=== PATIENT | female | born 1985 | race Two or more races ===

== ENCOUNTER 2024-09-14 15:29 | Emergency (ER) | payer SELFPAY ==
[2024-09-14 15:30] VITALS: BMI 27.4
[2024-09-14 15:56] VITALS: BP 134/85; PULSE 100; RESP 18; TEMP 37.4; O2SAT 100
--- NOTE | 2024-09-14 16:19 | EDRME_ITS ---
Rapid Medical Screening Exam E Arrival date/time: 09/14/24 15:29 This is a 39-year-old female presents to the emergency department with complaints of generalized fatigue and dizziness, reports her hemoglobin was 6.8 last week. She is taking ferrous sulfate however is unknown if her hemoglobin has dropped has been on her menses for the last 3 months. I have greeted and performed a focused initial assessment of this patient. Initial appropriate labs ordered at this time. A comprehensive ED assessment an d evaluation of the patient and analysis of all test and completion of medical decision making process will be conducted by additional ED provider. Chief Complaint: Flu Like Symptoms Time Seen by Provider: 09/14/24 15:59 Vital signs: Vital Signs Temperature 99.3 F 09/14/24 15:56 Pulse Rate 100 09/14/24 15:56 Respiratory Rate 18 09/14/24 15:56 Blood Pressure 134/85 H 09/14/24 15:56 Pulse Oximetry (%) 100 09/14/24 15:56 Oxygen Delivery Method Room Air 09/14/24 15:56
[2024-09-14 16:43] LABS: Basophils # (Auto) 0.2 Thou/mm3 (0.0-0.2); Basophils % (Auto) 1 % (0-2.5); Eosinophils # (Auto) 0.9 Thou/mm3 (0.0-0.5); Eosinophils % (Auto) 8 % (0-10); Immature Granulocytes % (Auto) 0 % (0-0); Immature Granulocytes Auto 0.04 Thou/mm3 (0.00-0.00); Lymphocytes # (Auto) 3.9 Thou/mm3 (1.0-4.8); Lymphocytes % (Auto) 33 % (10-50); Mean Corpuscular Hemoglobin 19.3 pg (25.0-35.0); Mean Corpuscular Volume 64 fL (80-100); Monocytes # (Auto) 0.7 Thou/mm3 (0.0-0.8); Monocytes % (Auto) 6 % (0-12); Neutrophils # (Auto) 5.9 Thou/mm3 (1.8-7.7); Neutrophils % (Auto) 51 % (37-80); Nucleated Red Blood Cell % 0 /100 WBC (0); Platelet Count 625 Thou/mm3 (140-440); RDW Standard Deviation 43.9 fL (36.4-46.3); Red Blood Count 3.42 Miln/mm3 (4.00-5.20); White Blood Count 11.7 Thou/mm3 (3.6-11.0)
[2024-09-14 16:49] LABS: Bilirubin,Urine Negative (Negative); Blood,Urine 1+ (Negative); Clarity,Urine Clear (Clear/Hazy); Color,Urine Yellow (Lt Yel-Yel); Glucose, Urine Negative (Negative); Ketones,Urine Negative (Negative); Leukocyte Esterase,Urine Positive (Negative); Nitrite,Urine Negative (Negative); Protein,Urine Trace (Neg - Trace); RBC,Urine 2 /hpf (0-3); Specific Gravity,Urine 1.028 (1.001-1.035); Squamous Epithelial Cell,Urine 5 /hpf (0-5); Urobilinogen,Urine Negative mg/dL (0.0-1.0); WBC,Urine 11 /hpf (0-5)
[2024-09-14 16:51] LABS: HCG Qualitative,Urine Negative
[2024-09-14 17:01] LABS: Alanine Aminotransferase 12 U/L (10-49); Albumin, Serum 4.5 gm/dL (3.5-5.0); Albumin/Globulin Ratio 1.5 (1.2-2.2); Alkaline Phosphatase 68 U/L (46-116); Anion Gap 10 (7-16); Aspartate Amino Transferase 13 U/L (0-34); BUN/Creatinine Ratio 23 Ratio (12-20); Bilirubin,Total 0.2 mg/dL (0.3-1.2); Blood Urea Nitrogen 16 mg/dL (9-23); Carbon Dioxide 22.5 mMol/L (20.0-31.0); Chloride 105 mMol/L (98-107); Creatinine (Component) 0.7 mg/dL (0.6-1.3); Estimated Creatinine Clearance 109.2 mL/min (>60); Globulin 3.1 gm/dL (2.3-3.5); Glucose 106 mg/dL (74-106); Lipase 48 U/L (12-53); Osmolality,Calculated 275 (275-295); Potassium 3.5 mMol/L (3.4-5.1); Sodium 137 mMol/L (136-145); Total Protein 7.6 gm/dL (5.7-8.2); eGFR > 60 See Note
[2024-09-14 17:03] LABS: Hemoglobin 6.6 g/dL (12.0-16.0)
[2024-09-14 17:08] LABS: Collection Type, Urine Clean Catch
[2024-09-14 17:15] LABS: Path Review Blood Smear Sent to Pathologist
--- NOTE | 2024-09-14 17:55 | EDNOTE_ITS ---
ED Dizzyness RME/HPI General Chief Complaint: Flu Like Symptoms Stated Complaint: Dizziness, near syncopal episode x 1 week, flu lik Time Seen by Provider: 09/14/24 15:59 Arrival date/time: 09/14/24 15:29 RME / HPI RME / HPI Narrative: 39-year-old female presents to the emergency department with complaints of generalized fatigue and dizziness, reports her hemoglobin was 6.8 last week. She is taking ferrous sulfate however is unknown if her hemoglobin has dropped has been on her menses for the last 3 months. Patient denies any black-colored stool. Denies any vomiting blood denies any blood in the stool. Related Data Previous Rx's ?Medication ?Instructions ?Recorded oseltamivir 75 mg capsule (Tamiflu) 75 mg PO BID 5 day s #10 caps 09/14/24 Allergies Allergy/AdvReac Type Severity Reaction Status Date / Time NKA Allergy Unknown Uncoded 04/06/21 12:44 No Known Allergies Allergy Unknown Uncoded 04/06/21 12:44 Review of Systems Review of Systems Narrative Review of Systems: Review of system reviewed and within normal limits except mentioned in HPI ED Exam Narrative Physical exam: VITAL SIGNS: Reviewed. GENERAL APPEARANCE: Alert and interactive, follows commands, no acute distress, HEAD AND FACE: Non-traumatic. ENT: PERRL, pale conjunctiva, eyelid no trauma, Mucous membrane moist. NECK: Supple, nontender, no nuchal rigidity. CHEST: No tenderness, no crepitus, no paradoxical movement, no retractions. LUNGS: Clear, well ventilated, symmetric, no rales, no wheezing, no ronchi, no stridor, good breath sounds bilaterally. HEART: Regular rate, regular rhythm, no murmur, no gallops. ABDOMEN: Soft, positive bowel sounds, nondistended, no guarding, nontender, no rebound, no masses, RECTAL: Deferred. GENITAL: Deferred. NEUROLOGICAL: Gross motor function intact sensory function intact, Appropriate for age. MUSCULOSKELETAL: low back nontender, full range of motion. EXTREMITIES: Nontender, full range of motion. SKIN: Color pale, dry, no rash, no lacerations, no abrasions, no contusions. LYMPHATICS: Deferred. Course Quality Measures none Orders Category Date Time Status Bedside Influenza A&B Antigen Test NOW Care 09/14/24 16:19 Completed Insert IV NOW Care 09/14/24 18:18 Active Occult Blood,Stool (Nursing) ONCE Care 09/14/24 17:54 Active Transfuse,blood/blood products ONCE Care 09/14/24 17:54 Active Antibody Identification Stat Lab 09/14/24 18:07 Results CBC Stat Lab 09/14/24 14:31 Completed Comprehensive Metabolic Panel Stat Lab 09/14/24 14:31 Completed HCG Qualitative,Urine Stat Lab 09/14/24 16:33 Completed Lipase Stat Lab 09/14/24 14:31 Completed Path Review Blood Smear Stat Lab 09/14/24 14:31 Completed Type and Screen Stat Lab 09/14/24 18:07 Results Urinalysis Stat Lab 09/14/24 16:33 Completed prbc [Red Blood Cells] Stat Lab 09/14/24 18:07 Results Oseltamivir [Tamiflu] Med 09/14/24 17:54 Discontinued 75 mg PO X1 ONE Vital Signs Vital signs: Vital Signs Temperature 99.3 F 09/14/24 15:56 Pulse Rate 100 09/14/24 15:56 Respiratory Rate 18 09/14/24 15:56 Blood Pressure 134/85 H 09/14/24 15:56 Pulse Oximetry (%) 100 09/14/24 15:56 Oxygen Delivery Method Room Air 09/14/24 15:56 Dizziness MDM Narrative MDM Narrative:: 39-year-old female presents to the emergency department with complaints of generalized fatigue and dizziness, reports her hemoglobin was 6.8 last week. She is taking ferrous sulfate however is unknown if her hemoglobin has dropped has been on her menses for the last 3 months. Patient denies any black-colored stool. Denies any vomiting blood denies any blood in the stool. Patient was tested positive for influenza AMB. Patient's hemoglobin was noted to be 6.6 today hematocrit of 22. Patient received 2 units of packed RBC. Was also given Tamiflu. Patient appears nontoxic and hemodynamically stable. Patient discharged home and instructed to follow-up with primary care provider in 24 to 48 hours. Instructed to return to the emergency department immediately if worsening of symptoms Patient data External records reviewed:: None Clinical information provided by:: patient Social determinants that could affect healthcare access:: none Patient has the following chronic illnesses:: None How is presenting disease/condition affected by chronic disease/condition?: no chronic disease Evaluation data The following diagnostics were reviewed and interpreted by me:: lab results Lab and/or radiology exams considered but not ordered:: None Interpretation Summary: See results in MDM Medications / Prescriptions Medications or Prescriptions considered but not ordered:: None Medication administrations:: Medication Administration History Discontinued Medications Oseltamivir Phosphate (Oseltamivir 75 Mg Capsule) 75 mg PO X1 ONE Stop: 09/14/24 17:55 Last Admin: 09/14/24 19:15 Dose: 75 mg Documented By: EE Tamiflu and 2 units packed RBC Consultations Consultation(s) initiated? (list below): No Diagnosis Dizziness Differential Diagnosis: other (Anemia, influenza, iron deficiency anemia) Most likely diagnosis given after review of the tests above:: Anemia, influenza Admission Indicated Admission indicated?: not indicated Admission Request Was there a request for admission?: No Disposition Plan Disposition Plan: Discharge Discharge Attestation Discharge Attestation: The patient was given an opportunity to ask questions and understood the discharge instructions. Discharge instructions specifically effects, indications for sooner follow up or return to the emergency department, and the expected course of current diagnosis. Patient condition: Stable Discharge Plan Plan Patient Disposition: HOME (Self Care) Disposition Comment: Stable Prescriptions/Referrals Prescriptions/Med Rec: New oseltamivir [Tamiflu] 75 mg capsule 75 mg PO BID 5 Days Qty: 10 0RF Referrals: No Primary/Family,Physician [Primary Care Provider] - In 1 week Problem List Clinical Impression: Anemia, Influenza Patient/Caregiver Discharge Instructions Discharge Activity: activity as tolerated Education Materials: Anemia Additional Instructions: Thank you for the opportunity for serving you today. You are stable for discharged . You are advised to: Follow-up with your PCP in 1 to 2 days Return to ED for worsening of symptoms Increase oral fluids Take medication as prescribed Print Language: Peruvian Stand Alone Forms: Sabrina Award Info., Patient Portal Info Letter PA/HIDE COOKING OPERATOR Supervising Physician PA/HIDE COOKING OPERATOR Supervising Physician: MD Noah
[2024-09-14 19:03] VITALS: BP 90/65; PULSE 89; RESP 18; TEMP 37.2; O2SAT 99
[2024-09-14] MEDS: OSELTAMIVIR 75 MG CAPSULE PO (19:15)
[2024-09-14 21:17] VITALS: BP 100/59; PULSE 75; RESP 17; TEMP 36.9; O2SAT 100
[2024-09-15] VITALS (10 sets, daily range): BP systolic 99–112; BP diastolic 60–70; PULSE 68–89; RESP 16–19; TEMP 36.7–37.1; O2SAT 97–100
== END 2024-09-15 04:47 | disposition home or self-care (01) ==
PROVIDERS: Nurse Practitioner Primary Care; Emergency Provider Emergency Medicine
DX: J11.1 Influenza due to unidentified influenza virus with other respiratory manifestations (principal); D64.9 Anemia, unspecified
CPT/HCPCS: 36415; 36430; 80053; 81001; 81025; 83690; 85025; 86850; 86870; 86900; 86901; 86921; 86922; 87400; 99285; P9016; A9270

== ENCOUNTER → 2025-06-11 | Outpatient (CLI) | payer OTHER, SELFPAY ==
--- NOTE | 2025-06-09 10:41 | ESHP_ITS ---
RE: KAVON SWIFT : 1985 DATE OF ADMISSION: 06/12/2025 DATE OF SURGERY: 06/12/2025 HISTORY OF PRESENT ILLNESS: This is a 40-year-old 5, para 5, with abnormal uterine bleeding, secondary dysmenorrhea, symptomatic uterine fibroids, deep dyspareunia, iron deficiency anemia with a history of blood transfusion due to heavy vaginal bleeding and endometrial ablation in 2023, who presents for hysterectomy due to failure of conservative measures to control her abnormal bleeding. ALLERGIES: NO KNOWN DRUG ALLERGIES. MEDICATIONS: Ferrous sulfate 325 mg 1 p.o. b.i.d. SOCIAL HISTORY: She denies any alcohol, drug use, or smoking. She is . OBSTETRICAL HISTORY: Five previous full-term normal vaginal deliveries. PAST SURGICAL HISTORY: Endometrial ablation in 2023, laparoscopic bilateral salpingectomy. PAST MEDICAL HISTORY: Blood transfusion. Iron deficiency anemia. PHYSICAL EXAMINATION: VITAL SIGNS: Blood pressure 128/74, heart rate 88, respirations 16, temperature is 98.2, weight 172 pounds. HEENT: Oropharynx and sclerae are clear. LUNGS: Clear to auscultation bilaterally. HEART: Regular rate and rhythm. ABDOMEN: Nontender. EXTREMITIES: Nontender. SKIN: No gross rashes or lesions. NEUROLOGIC: No focal deficit. ASSESSMENT: Abnormal uterine bleeding, secondary dysmenorrhea, deep dyspareunia, symptomatic leiomyomatous uterus, severe anemia, blood transfusion history. PLAN: Abdominal hysterectomy, bilateral salpingectomy. Informed consent was obtained. The patient made aware of the risks, complications, alternatives, and benefits of the proposed procedure and she agrees. She is aware of the risk of injury to bowel, bladder, ureters, adjacent organs, nerve injury to the legs and skin, pulmonary embolism, deep vein thrombosis, injury to the vessels of the abdominal wall, hematoma, abscess, wound infection, wound dehiscence, pelvic infection, reoperation to repair injury to internal organs, anesthesia complications, the need for a future surgery to remove ovaries or tubes, and the need to take hormone therapy with its associated risks, uncontrollable loss of urine symptoms, prolapse of the vagina, and rarely . In some cases, a subtotal hysterectomy may be performed if severe adhesions of bladder to lower uterine segment or other indications and that this may result in continued menstrual cycle after surgery. DT: 10:26:36 TT: 10:40:00 Ref: [id number] - TID: [id number] MTDD
[2025-06-11 08:44] VITALS: BMI 28.7
[2025-06-11 09:54] LABS: Alanine Aminotransferase 49 U/L (10-49); Albumin, Serum 4.3 gm/dL (3.5-5.0); Albumin/Globulin Ratio 1.5 (1.2-2.2); Alkaline Phosphatase 86 U/L (46-116); Anion Gap 9 (7-16); Aspartate Amino Transferase 36 U/L (0-34); BUN/Creatinine Ratio 14 Ratio (12-20); Beta HCG,Quantitative < 1 mIU/mL (<5.0); Bilirubin,Total 0.3 mg/dL (0.3-1.2); Blood Urea Nitrogen 10 mg/dL (9-23); Calcium 9.6 mg/dL (8.3-10.6); Calcium (Corrected) 9.6 mg/dL (8.5-10.1); Carbon Dioxide 24.7 mMol/L (20.0-31.0); Chloride 105 mMol/L (98-107); Creatinine (Component) 0.7 mg/dL (0.6-1.3); Estimated Creatinine Clearance 110.5 mL/min (>60); Globulin 2.8 gm/dL (2.3-3.5); Glucose 135 mg/dL (74-106); Osmolality,Calculated 278 (275-295); Potassium 3.7 mMol/L (3.4-5.1); Sodium 139 mMol/L (136-145); Total Protein 7.1 gm/dL (5.7-8.2); eGFR > 60 See Note
[2025-06-11 09:59] LABS: Basophils # (Auto) 0.1 Thou/mm3 (0.0-0.2); Basophils % (Auto) 1 % (0-2.5); Eosinophils # (Auto) 0.5 Thou/mm3 (0.0-0.5); Eosinophils % (Auto) 5 % (0-10); Hematocrit 32.2 % (36.0-46.0); Hemoglobin 10.3 g/dL (12.0-16.0); Immature Granulocytes Auto 0.06 Thou/mm3 (0.00-0.00); Lymphocytes # (Auto) 2.8 Thou/mm3 (1.0-4.8); Lymphocytes % (Auto) 29 % (10-50); Mean Corpuscular HGB Conc 32.0 g/dl (31.0-37.0); Mean Corpuscular Hemoglobin 25.7 pg (25.0-35.0); Mean Corpuscular Volume 80 fL (80-100); Monocytes # (Auto) 0.5 Thou/mm3 (0.0-0.8); Monocytes % (Auto) 5 % (0-12); Neutrophils # (Auto) 5.5 Thou/mm3 (1.8-7.7); Neutrophils % (Auto) 58 % (37-80); Nucleated Red Blood Cell # 0.00 Thou/mm3 (0.00-0.00); Nucleated Red Blood Cell % 0 /100 WBC (0); Platelet Count 402 Thou/mm3 (140-440); RDW Standard Deviation 43.0 fL (36.4-46.3); Red Blood Count 4.01 Miln/mm3 (4.00-5.20); White Blood Count 9.5 Thou/mm3 (3.6-11.0)
[2025-06-11 10:00] LABS: INR 0.9 (0.9-1.3); Partial Thromboplastin Time 22.8 Seconds (22.0-36.0); Prothrombin Time 9.8 Seconds (9.0-12.2)
== END | disposition home or self-care (01) ==
LOC: SLAB 06-14 08:00
PROVIDERS: PCP Family Medicine; Referring Provider Specialist; Visit Provider Specialist
DX: N93.9 Abnormal uterine and vaginal bleeding, unspecified (principal); N94.5 Secondary dysmenorrhea; D25.9 Leiomyoma of uterus, unspecified; D50.8 Other iron deficiency anemias
CPT/HCPCS: 36415; 80053; 84702; 85025; 85610; 85730; 86850; 86900; 86901; J7120

== ENCOUNTER 2025-07-16 14:39 | Emergency (ER) | payer OTHER, SELFPAY ==
[2025-07-16 14:50] VITALS: BP 167/98; PULSE 93; RESP 18; TEMP 37.3; O2SAT 99; BMI 30.2
[2025-07-16 15:25] LABS: Basophils # (Auto) 0.1 Thou/mm3 (0.0-0.2); Basophils % (Auto) 1 % (0-2.5); Eosinophils # (Auto) 0.4 Thou/mm3 (0.0-0.5); Eosinophils % (Auto) 4 % (0-10); Hematocrit 26.7 % (36.0-46.0); Immature Granulocytes Auto 0.06 Thou/mm3 (0.00-0.00); Lymphocytes # (Auto) 3.3 Thou/mm3 (1.0-4.8); Lymphocytes % (Auto) 30 % (10-50); Mean Corpuscular HGB Conc 31.8 g/dl (31.0-37.0); Mean Corpuscular Hemoglobin 24.9 pg (25.0-35.0); Mean Corpuscular Volume 78 fL (80-100); Monocytes # (Auto) 0.6 Thou/mm3 (0.0-0.8); Monocytes % (Auto) 6 % (0-12); Neutrophils # (Auto) 6.5 Thou/mm3 (1.8-7.7); Neutrophils % (Auto) 59 % (37-80); Nucleated Red Blood Cell # 0.00 Thou/mm3 (0.00-0.00); Nucleated Red Blood Cell % 0 /100 WBC (0); Platelet Count 317 Thou/mm3 (140-440); RDW Standard Deviation 47.2 fL (36.4-46.3); Red Blood Count 3.41 Miln/mm3 (4.00-5.20); White Blood Count 11.0 Thou/mm3 (3.6-11.0)
[2025-07-16 15:32] LABS: Hemoglobin 8.5 g/dL (12.0-16.0)
[2025-07-16 15:45] LABS: Alanine Aminotransferase 37 U/L (10-49); Albumin, Serum 4.3 gm/dL (3.5-5.0); Albumin/Globulin Ratio 1.4 (1.2-2.2); Alkaline Phosphatase 85 U/L (46-116); Anion Gap 12 (7-16); Aspartate Amino Transferase 34 U/L (0-34); BUN/Creatinine Ratio 14 Ratio (12-20); Bilirubin,Total 0.2 mg/dL (0.3-1.2); Blood Urea Nitrogen 10 mg/dL (9-23); Calcium 8.5 mg/dL (8.3-10.6); Calcium (Corrected) 8.5 mg/dL (8.5-10.1); Carbon Dioxide 23.2 mMol/L (20.0-31.0); Chloride 105 mMol/L (98-107); Creatinine (Component) 0.7 mg/dL (0.6-1.3); Estimated Creatinine Clearance 109.2 mL/min (>60); Globulin 3.1 gm/dL (2.3-3.5); Glucose 102 mg/dL (74-106); Osmolality,Calculated 278 (275-295); Potassium 3.8 mMol/L (3.4-5.1); Sodium 140 mMol/L (136-145); Total Protein 7.4 gm/dL (5.7-8.2); eGFR > 60 See Note
--- NOTE | 2025-07-16 15:56 | PD.EDWEAK ---
ED Weakness RME/HPI General Chief complaint: General Adult/Misc Complain Stated complaint: VERY WEAK, POSS. LOW HGB Time Seen by Provider: 07/16/25 14:46 Source: patient Arrival date/time: 07/16/25 14:39 40-year-old female with no known medical history presents to the emergency room with a chief complaint of weakness. Patient states she has a history of a low hemoglobin level. Mode of arrival: ambulatory Limitations: no limitations Related Data Home Medications ?Medication ?Instructions ?Recorded ?Confirmed No Known Home Medications 06/11/25 06/11/25 Allergies Allergy/AdvReac Type Severity Reaction Status Date / Time No Known Allergies Allergy Verified 07/16/25 14:40 Review of Systems Review of Systems Systems Reviewed: All systems reviewed, normal except as documented Constitutional Constitutional: Reports system reviewed and no additional complaints, except as documented, Denies fatigue, Denies fever(s), Denies headache(s) and Denies weakness Eyes Eyes: Reports system reviewed and no additional complaints, except as documented, Denies blurry vision and Denies change in vision ENT Ears, Nose, Mouth, and Throat: Reports system reviewed and no additional complaints, except as documented, Denies otalgia, Denies headache(s), Denies nasal congestion, Denies throat swelling and Denies vertigo Cardiovascular Cardiovascular: Reports system reviewed and no additional complaints, except as documented, Denies chest pain, Denies dyspnea and Denies dyspnea on exertion Respiratory Respiratory: Reports system reviewed and no additional complaints, except as documented, Denies chest congestion, Denies cough, Denies dyspnea, Denies dyspnea on exertion and Denies wheezing Gastrointestinal Gastrointestinal: Reports system reviewed and no additional complaints, except as documented, Denies abdominal pain, Denies cramping, Denies nausea and Denies vomiting Genitourinary Genitourinary: Reports system reviewed and no additional complaints, except as documented Musculoskeletal Musculoskeletal: Reports system reviewed and no additional complaints, except as documented and Denies back pain Integumentary/Breasts Skin/Breast: Reports system reviewed and no additional complaints, except as documented and Denies wounds Neurologic Neurologic: Reports system reviewed and no additional complaints, except as documented, Denies confusion, Denies headache(s), Denies lack of coordination, Denies vertigo and Denies weakness Psychiatric Psychiatric: Reports system reviewed and no additional complaints, except as documented, Denies anxiety, Denies confusion, Denies depression, Denies paranoia, Denies suicidal ideation and Denies tactile hallucinations Endocrine Endocrine: Reports system reviewed and no additional complaints, except as documented and Denies fatigue Hematologic/Lymphatic Hematologic/Lymphatic: Reports system reviewed and no additional complaints, except as documented and Denies lymphadenopathy Allergic/Immunologic Allergic/Immunologic: Reports system reviewed and no additional complaints, except as documented, Denies throat swelling, Denies urticaria and Denies wheezing ED Exam General Limitations: Present no limitations General appearance: Present alert and in no apparent distress Head Head exam: Present atraumatic Eye Eye exam: Present normal appearance, PERRL and EOMI ENT ENT exam: Present normal exam, normal oropharynx and mucous membranes moist Neck Neck exam: Present normal inspection, full ROM and trachea midline Chest Chest inspection: Present normal inspection and symmetric chest wall rise Respiratory Respiratory exam: Present normal lung sounds bilaterally Cardiovascular Cardiovascular exam: Present regular rate, normal rhythm and normal heart sounds Abdominal Exam Abdominal exam: Present soft and normal bowel sounds Extremities Exam Extremities exam: Present normal inspection and full ROM Back Exam Back exam: Present normal inspection and full ROM Neurological Exam Neurological exam: Present alert, oriented X3 and CN II-XII intact Psychiatric Psychiatric exam: Present normal affect and normal mood Skin Skin exam: Present warm, dry, intact and normal color Course Quality Measures none Orders Category Date Time Status CBC Stat Lab 07/16/25 15:00 Completed CMP [Comprehensive Metabolic Panel] Stat Lab 07/16/25 15:00 Completed PT [Prothrombin Time with INR] Stat Lab 07/16/25 15:00 Received PTT [Partial Thromboplastin Time] Stat Lab 07/16/25 15:00 Received Type and Screen Stat Lab 07/16/25 15:00 Completed Vital Signs Vital signs: Vital Signs Temperature 99.2 F 07/16/25 14:50 Pulse Rate 93 07/16/25 14:50 Respiratory Rate 18 07/16/25 14:50 Blood Pressure 167/98 H 07/16/25 14:50 Pulse Oximetry (%) 99 07/16/25 14:50 Oxygen Delivery Method Room Air 07/16/25 14:50 Weakness MDM Narrative MDM Narrative:: 40-year-old female with no known medical history presents to the emergency room with a chief complaint of weakness. Patient states she has a history of a low hemoglobin level. Patient is hemodynamically stable and in no apparent distress Physical examination shows clear bilateral lung sounds. The patient denies any tenderness to her abdomen or anywhere else. Patient states she is having vaginal bleeding but has seen her METAL STAMPER and she has a scheduled hysterectomy coming up next month. Patient states she is here to the emergency room due to weakness. Patient states she has a history of a hemoglobin of 6.6 and states one of her symptoms was increased fatigue. Today her CBC and CMP were completed and just showed iron deficiency anemia with a hemoglobin of 8.5. Patient states she has iron supplements at home Patient was discharged and educated to follow-up with primary care provider in the next 24 to 48 hours and return to the emergency room for any evidence of worsening signs or symptoms Patient data External records reviewed:: [facility] previous records Clinical information provided by:: patient Social determinants that could affect healthcare access:: none Patient has the following chronic illnesses:: Iron deficiency anemia How is presenting disease/condition affected by chronic disease/condition?: no chronic disease Evaluation data The following diagnostics were reviewed and interpreted by me:: lab results and radiology exam(s) Lab and/or radiology exams considered but not ordered:: Labs radiology exams considered and ordered Interpretation Summary: N/A Medications / Prescriptions Medications or Prescriptions considered but not ordered:: No medication given Medication administrations:: No medication given Consultations Consultation(s) initiated? (list below): No Diagnosis Weakness Differential Diagnosis: anemia, dehydration and other (Weakness/iron deficiency anemia) Most likely diagnosis given after review of the tests above:: Iron deficiency anemia Admission Indicated Admission indicated?: not indicated Admission Request Was there a request for admission?: No Disposition Plan Disposition Plan: Discharge Discharge Attestation Discharge Attestation: The patient and all family members were given an opportunity to ask questions and understood the discharge instructions. Discharge instructions specifically effects, indications for sooner follow up or return to the emergency department, and the expected course of current diagnosis. Patient condition: Stable Discharge Plan Plan Patient Disposition: HOME (Self Care) Discharge Disposition comment: Stable Prescriptions/Referrals Prescriptions/Med Rec: No Action No Known Home Medications Problem List Clinical Impression: Iron deficiency anemia Patient/Caregiver Discharge Instructions Education Materials: ED Anemia, Iron-Deficiency (Adult) Additional Instructions: Please follow-up with your primary care provider in the next 24 to 48 hours Please continue to take your iron supplements For any evidence of worsening signs or symptoms return to the emergency room immediately Print Language: Bulgarian Stand Alone Forms: [employer] Work/School Release, Patient Portal Info Letter PA/PRODUCT SAFETY SPECIALIST Supervising Physician PA/PRODUCT SAFETY SPECIALIST Supervising Physician: Dr. Cervantes
[2025-07-16 16:38] LABS: INR 0.9 (0.9-1.3); Partial Thromboplastin Time 22.2 Seconds (22.0-36.0); Prothrombin Time 9.8 Seconds (9.0-12.2)
== END 2025-07-16 16:02 | disposition home or self-care (01) ==
LOC: SERX 16:12
PROVIDERS: Nurse Practitioner Family; Emergency Provider Physician Assistant
DX: D50.9 Iron deficiency anemia, unspecified (principal)
CPT/HCPCS: 36415; 80053; 85025; 85610; 85730; 86850; 86900; 86901; 99282